=== PATIENT | male | born 1980 | race American Indian/Alaskan Native ===

== ENCOUNTER 2017-06-10 19:12 | Emergency (ER) | payer OTHER ==
[2017-06-10 20:06] VITALS: BP 132/93
[2017-06-10] MEDS ORDERED: NORCO 5/325 PO ONE (22:55)
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
== END 2017-06-11 01:08 | disposition home or self-care (01) ==
LOC: ED 19:12
DX: M25.552 Pain in left hip (principal); M54.5 Low back pain; M54.2 Cervicalgia; M54.6 Pain in thoracic spine; V43.52XA Car driver injured in collision with other type car in traffic accident, initial encounter; Y93.89 Activity, other specified; Y99.8 Other external cause status; Y92.488 Other paved roadways as the place of occurrence of the external cause
CPT/HCPCS: 72040; 72072; 72100; 99283